=== PATIENT | female | born 1935 | race Caucasian/White ===

== ENCOUNTER 2017-11-03 08:18 | Inpatient (IN) ==
[2017-11-03 09:42] LABS: INR 3.1
[2017-11-03 09:43] LABS: PT Patient Result 31.4 SECS
[2017-11-03 09:53] LABS: Basophils % 0.2 % (0.0-0.8); Eosinophils % 0.1 % (0.00-10.9); Hematocrit 30.9 VOL% (35.7-47.0); Hemoglobin 10.2 GM/DL (12.0-16.0); Immature Granulocytes % 0.5 %; Immature Granulocytes Absolute 0.07 #; Lymphocytes # 0.8 10*3/uL (1.4-4.0); Lymphocytes % 5.7 % (21.3-54.2); Mean Corpuscular Hemoglobin 30 PG (27-34); Mean Corpuscular Volume 90.4 FL (87-102); Mean Platelet Volume 10.9 FL (9.6-12.0); Monocytes # 0.8 10*3/uL (0.11-0.8); Monocytes % 5.8 % (1.7-12.7); Neutrophils # 12.8 10*3/uL (1.4-7.4); Neutrophils % 87.7 % (38.7-73.9); Platelet Count 281 T/CUMM (130-400); Red Blood Count 3.42 MC/CUMM (3.8-5.5); Red Cell Distribution Width 14.3 % (9.3-17.3); White Blood Count 14.5 T/CUMM (4-12)
[2017-11-03 09:57] LABS: Alanine Aminotransferase 14 U/L (13-56); Albumin 3.3 G/DL (3.4-5.0); Alkaline Phosphatase 57 U/L (45-117); Aspartate Amino Transferase 7 U/L (0-37); Bilirubin,Total < 0.39 MG/DL (0.2-1.0); Calcium 8.2 MG/DL (8.5-10.1); Total Protein 6.1 G/DL (6.4-8.3)
[2017-11-03 09:58] LABS: Blood Urea Nitrogen 9 MG/DL (7-18); Glucose 120 MG/DL (74-106); Osmolality,Calculated 254.2 MOS/KG (273-304); Potassium 3.7 MMOL/L (3.5-5.1); Sodium 127 MMOL/L (136-145)
[2017-11-03] MEDS ORDERED: DOCUSATE SODIUM 100 MG CAPSULE PO PRN (10:09)
[2017-11-03] MEDS ORDERED: PHYTONADIONE 5 MG/5 ML ORAL.SYR PO ONE (10:13)
[2017-11-03] MEDS: ONDANSETRON 4 MG/2 ML VIAL IV PRN (10:26)
[2017-11-03] MEDS ORDERED: ONDANSETRON 4 MG/2 ML VIAL ONE (10:27)
[2017-11-03] MEDS: SODIUM CHLORIDE 0.9% 1,000 ML IV SCH (11:46)
[2017-11-03] MEDS: ASPIRIN EC 81 MG TABLET PO SCH (16:25)
[2017-11-03] MEDS: METOPROLOL TARTRATE 25 MG TABLET PO SCH ×2 (16:25→16:41)
[2017-11-03] MEDS ORDERED: SODIUM CHLORIDE 0.9% 1,000 ML IV PRN ×2 (16:53→19:56)
[2017-11-03] MEDS ORDERED: MORPHINE 2 MG/1 ML SYRINGE IV PRN (17:01)
[2017-11-03] MEDS: MORPHINE 2 MG/1 ML SYRINGE IV PRN ×2 (17:13→23:13)
[2017-11-03 17:24] LABS: Apearance,Urine CLOUDY (Clear); Bacteria,Urine Moderate /HPF (Few); Bilirubin,Urine Negative (Negative); Blood, Urine Large mg/dL (Negative); Glucose,Urine (UA) Negative (Negative); Ketones,Urine Negative (Negative); Mucus,Urine Occasional /LPF (Occasional); Nitrite,Urine Positive (Negative); Protein,Urine Negative; RBC,Urine 66 /HPF (0-4); Squamous Epithelial Cell,Urine Occasional /HPF (0-10); Urine Color Yellow (Yellow); Urine Specific Gravity 1.006 (1.001-1.035); Urine Urobilinogen < 2.0 EU/DL (0.2-1.0); WBC,Urine 213 /HPF (0-6)
[2017-11-03] MEDS: ZALEPLON 5 MG CAPSULE PO SCH (21:11)
[2017-11-03] MEDS: LORATADINE 10 MG TABLET PO SCH (21:11)
[2017-11-03] MEDS: hydrALAZINE 25 MG TABLET PO SCH (21:15)
[2017-11-04 05:32] LABS: Basophils % 0.3 % (0.0-0.8); Eosinophils % 0.6 % (0.00-10.9); Hematocrit 23.8 VOL% (35.7-47.0); Immature Granulocytes % 0.4 %; Immature Granulocytes Absolute 0.03 #; Lymphocytes % 13.5 % (21.3-54.2); Mean Corpuscular Hemoglobin 30 PG (27-34); Mean Corpuscular Volume 87.2 FL (87-102); Mean Platelet Volume 11.1 FL (9.6-12.0); Monocytes % 13.4 % (1.7-12.7); Neutrophils # 5.2 10*3/uL (1.4-7.4); Neutrophils % 71.8 % (38.7-73.9); Red Cell Distribution Width 14.4 % (9.3-17.3)
[2017-11-04 05:41] LABS: INR 1.2; PT Patient Result 12.4 SECS
[2017-11-04 06:07] LABS: Calcium 8.8 MG/DL (8.5-10.1); Osmolality,Calculated 255.9 MOS/KG (273-304); Potassium 3.8 MMOL/L (3.5-5.1)
[2017-11-04 06:10] LABS: Red Blood Count 2.73 MC/CUMM (3.8-5.5); White Blood Count 7.2 T/CUMM (4-12)
[2017-11-04 06:11] LABS: Hemoglobin 8.1 GM/DL (12.0-16.0); Platelet Count 216 T/CUMM (130-400)
[2017-11-04 06:47] LABS: Risk Ratio 2.3; VLDL CHOLESTEROL 18.2 MG/DL
[2017-11-04] MEDS ORDERED: SODIUM CHLORIDE 0.9% 1,000 ML IV PRN (07:40)
[2017-11-04] MEDS ORDERED: CLINDAMYCIN INJ 600 MG in PREMIX 1 EACH IV ONE (08:00)
[2017-11-04] MEDS: FUROSEMIDE 80 MG TABLET PO SCH ×2 (08:08→15:40)
[2017-11-04] MEDS: ASPIRIN EC 81 MG TABLET PO SCH (08:09)
[2017-11-04] MEDS: LORATADINE 10 MG TABLET PO SCH ×2 (08:09→20:49)
[2017-11-04] MEDS: MOMETASONE 50 MCG NASAL SPRAY 17 GM BOTTLE BOTH NARES SCH (08:09)
[2017-11-04] MEDS: PANTOPRAZOLE 40 MG TABLET PO SCH (08:09)
[2017-11-04] MEDS: ISOSORBIDE DINITRATE 20 MG TABLET PO SCH ×2 (08:09→08:17)
[2017-11-04] MEDS: POTASSIUM CHLORIDE 10 MEQ TABLET PO SCH (08:09)
[2017-11-04] MEDS: METOPROLOL TARTRATE 25 MG TABLET PO SCH (08:16)
[2017-11-04] MEDS: hydrALAZINE 25 MG TABLET PO SCH (08:17)
[2017-11-04] MEDS: MORPHINE 2 MG/1 ML SYRINGE IV PRN (08:17)
[2017-11-04] MEDS: SODIUM CHLORIDE 0.9% 1,000 ML IV SCH (09:40)
[2017-11-04] MEDS: ONDANSETRON 4 MG/2 ML VIAL IV PRN (10:13)
[2017-11-04] MEDS ORDERED: LACTULOSE 20 GM/30 ML UDCUP PO PRN (13:31)
[2017-11-04] MEDS ORDERED: PROMETHAZINE 25 MG/1 ML VIAL IM PRN (13:31)
[2017-11-04] MEDS ORDERED: MAGNESIUM HYDROXIDE SUSP 30 ML UDCUP PO PRN (13:31)
[2017-11-04] MEDS ORDERED: PROMETHAZINE 25 MG TABLET PO PRN (13:35)
[2017-11-04] MEDS ORDERED: fentaNYL 100 MCG/2 ML VIAL ONE (13:58)
[2017-11-04] MEDS ORDERED: MIDAZOLAM 2 MG/2 ML VIAL ONE (13:58)
[2017-11-04] MEDS ORDERED: DEXAMETHASONE 4 MG/1 ML VIAL ONE (13:58)
[2017-11-04] MEDS ORDERED: ONDANSETRON 4 MG/2 ML VIAL ONE ×2 (13:58→15:02)
[2017-11-04] MEDS ORDERED: FAMOTIDINE 20 MG/2 ML VIAL IV ONE (13:59)
[2017-11-04] MEDS ORDERED: METOPROLOL TARTRATE 5 MG/5 ML VIAL IV ONE (13:59)
[2017-11-04] MEDS ORDERED: ETOMIDATE 40 MG/20 ML VIAL IV ONE (14:00)
[2017-11-04] MEDS ORDERED: PROPOFOL 200 MG/20 ML VIAL IV ONE (14:00)
[2017-11-04] MEDS: LACTATED RINGERS 1,000 ML IV SCH ×2 (14:03)
[2017-11-04] MEDS: HYDROmorphone 2 MG/1 ML VIAL IV PRN ×2 (15:00→15:05)
[2017-11-04] MEDS ORDERED: HYDROmorphone 2 MG/1 ML VIAL ONE (15:02)
[2017-11-04] MEDS ORDERED: ONDANSETRON 4 MG/2 ML VIAL IV PRN (15:08)
[2017-11-04] MEDS: WARFARIN 5 MG TABLET PO SCH (17:15)
[2017-11-04] MEDS: CLINDAMYCIN INJ 900 MG in PREMIX 1 EACH IV SCH (20:47)
[2017-11-04] MEDS: MORPHINE ER 15 MG TABLET PO SCH (20:48)
[2017-11-04] MEDS: hydrALAZINE 10 MG TABLET PO SCH (20:48)
[2017-11-04] MEDS: ZALEPLON 5 MG CAPSULE PO SCH (20:49)
[2017-11-04] MEDS: ATORVASTATIN 20 MG TABLET PO SCH (20:49)
[2017-11-05] MEDS: CLINDAMYCIN INJ 900 MG in PREMIX 1 EACH IV SCH ×2 (04:57→12:33)
[2017-11-05 08:23] LABS: Calcium 8.2 MG/DL (8.5-10.1); Osmolality,Calculated 257.1 MOS/KG (273-304)
[2017-11-05 08:28] LABS: Basophils % 0.1 % (0.0-0.8); Hematocrit 25.2 VOL% (35.7-47.0); Hemoglobin 8.4 GM/DL (12.0-16.0); Immature Granulocytes % 0.8 %; Immature Granulocytes Absolute 0.13 #; Lymphocytes % 6.3 % (21.3-54.2); Mean Corpuscular HGB Conc 33.3 GM/DL (32-36); Mean Corpuscular Hemoglobin 29 PG (27-34); Mean Corpuscular Volume 87.2 FL (87-102); Mean Platelet Volume 10.9 FL (9.6-12.0); Monocytes % 12.8 % (1.7-12.7); Neutrophils # 12.5 10*3/uL (1.4-7.4); Platelet Count 173 T/CUMM (130-400); Red Blood Count 2.89 MC/CUMM (3.8-5.5); Red Cell Distribution Width 14.9 % (9.3-17.3); White Blood Count 15.6 T/CUMM (4-12)
[2017-11-05] MEDS ORDERED: NON-FORMULARY MEDICATION (Lansoprazole [Prevacid] 30 MG) PO SCH (09:00)
[2017-11-05] MEDS: FUROSEMIDE 80 MG TABLET PO SCH ×2 (09:05→16:33)
[2017-11-05] MEDS: MEROPENEM 1,000 MG in SYRINGE 1 EACH IV SCH ×2 (09:05→21:10)
[2017-11-05] MEDS: ASPIRIN 325 MG TABLET PO SCH (09:06)
[2017-11-05] MEDS: LORATADINE 10 MG TABLET PO SCH ×2 (09:06→21:05)
[2017-11-05] MEDS: ISOSORBIDE DINITRATE 20 MG TABLET PO SCH (09:07)
[2017-11-05] MEDS: POTASSIUM CHLORIDE 10 MEQ TABLET PO SCH (09:07)
[2017-11-05] MEDS: PANTOPRAZOLE 40 MG TABLET PO SCH (09:09)
[2017-11-05] MEDS: LISINOPRIL 5 MG TABLET PO SCH (09:09)
[2017-11-05] MEDS: METOPROLOL TARTRATE 25 MG TABLET PO SCH (09:09)
[2017-11-05] MEDS: hydrALAZINE 10 MG TABLET PO SCH ×2 (09:12→21:04)
[2017-11-05] MEDS: MORPHINE 2 MG/1 ML SYRINGE IV PRN (09:35)
[2017-11-05] MEDS: MOMETASONE 50 MCG NASAL SPRAY 17 GM BOTTLE BOTH NARES SCH (09:35)
[2017-11-05] MEDS ORDERED: SODIUM CHLORIDE 0.9% 1,000 ML IV PRN (10:11)
[2017-11-05] MEDS: LACTATED RINGERS 1,000 ML IV SCH ×2 (11:19→23:15)
[2017-11-05] MEDS: ONDANSETRON 4 MG/2 ML VIAL IV PRN (11:31)
[2017-11-05] MEDS: WARFARIN 5 MG TABLET PO SCH (18:29)
[2017-11-05] MEDS: ZALEPLON 5 MG CAPSULE PO SCH (21:05)
[2017-11-05] MEDS: ATORVASTATIN 20 MG TABLET PO SCH (21:05)
[2017-11-05] MEDS: MORPHINE ER 15 MG TABLET PO SCH (22:42)
[2017-11-06 03:11] LABS: Basophils % 0.3 % (0.0-0.8); Eosinophils # 0.1 10*3/uL (0.0-0.87); Hematocrit 33.7 VOL% (35.7-47.0); Hemoglobin 11.4 GM/DL (12.0-16.0); Immature Granulocytes % 0.6 %; Immature Granulocytes Absolute 0.07 #; Lymphocytes # 1.3 10*3/uL (1.4-4.0); Lymphocytes % 10.9 % (21.3-54.2); Mean Corpuscular HGB Conc 33.8 GM/DL (32-36); Mean Corpuscular Hemoglobin 29 PG (27-34); Monocytes # 1.9 10*3/uL (0.11-0.8); Monocytes % 16.4 % (1.7-12.7); Neutrophils # 8.3 10*3/uL (1.4-7.4); Neutrophils % 70.8 % (38.7-73.9); Platelet Count 158 T/CUMM (130-400); Red Blood Count 3.92 MC/CUMM (3.8-5.5); Red Cell Distribution Width 13.9 % (9.3-17.3); White Blood Count 11.7 T/CUMM (4-12)
[2017-11-06 03:30] LABS: PT Patient Result 10.8 SECS
[2017-11-06 03:38] LABS: Calcium 8.1 MG/DL (8.5-10.1); Osmolality,Calculated 255.1 MOS/KG (273-304); Potassium 3.8 MMOL/L (3.5-5.1)
[2017-11-06 05:24] LABS: Lymphocytes 7 % (20-55); Segmented Neutrophils 83 % (50-85); Total Cells Counted 100
[2017-11-06 05:26] LABS: Platelet Estimate Normal
[2017-11-06 05:27] LABS: Hypochromasia Slight
[2017-11-06] MEDS: LACTATED RINGERS 1,000 ML IV SCH ×3 (06:36→22:01)
[2017-11-06] MEDS: FUROSEMIDE 80 MG TABLET PO SCH ×2 (09:17→17:24)
[2017-11-06] MEDS: MEROPENEM 1,000 MG in SYRINGE 1 EACH IV SCH ×2 (09:17→20:24)
[2017-11-06] MEDS: LORATADINE 10 MG TABLET PO SCH ×2 (09:18→20:22)
[2017-11-06] MEDS: ASPIRIN 325 MG TABLET PO SCH (09:18)
[2017-11-06] MEDS: POTASSIUM CHLORIDE 10 MEQ TABLET PO SCH (09:24)
[2017-11-06] MEDS: METOPROLOL TARTRATE 25 MG TABLET PO SCH (09:24)
[2017-11-06] MEDS: ISOSORBIDE DINITRATE 20 MG TABLET PO SCH (09:24)
[2017-11-06] MEDS: LISINOPRIL 5 MG TABLET PO SCH (09:26)
[2017-11-06] MEDS: PANTOPRAZOLE 40 MG TABLET PO SCH (09:26)
[2017-11-06] MEDS: hydrALAZINE 10 MG TABLET PO SCH (09:27)
[2017-11-06] MEDS: MOMETASONE 50 MCG NASAL SPRAY 17 GM BOTTLE BOTH NARES SCH ×2 (10:46→10:48)
[2017-11-06] MEDS: WARFARIN 5 MG TABLET PO SCH (18:56)
[2017-11-06] MEDS: ZALEPLON 5 MG CAPSULE PO SCH (20:22)
[2017-11-06] MEDS: ATORVASTATIN 20 MG TABLET PO SCH (20:22)
[2017-11-06] MEDS: MORPHINE ER 15 MG TABLET PO SCH (20:23)
[2017-11-07 03:46] LABS: Basophils % 0.2 % (0.0-0.8); Eosinophils # 0.2 10*3/uL (0.0-0.87); Eosinophils % 1.4 % (0.00-10.9); Hematocrit 33.4 VOL% (35.7-47.0); Hemoglobin 11.5 GM/DL (12.0-16.0); Immature Granulocytes % 0.6 %; Immature Granulocytes Absolute 0.07 #; Lymphocytes # 1.4 10*3/uL (1.4-4.0); Lymphocytes % 11.3 % (21.3-54.2); Mean Corpuscular HGB Conc 34.4 GM/DL (32-36); Mean Corpuscular Hemoglobin 29 PG (27-34); Mean Corpuscular Volume 83.9 FL (87-102); Mean Platelet Volume 10.8 FL (9.6-12.0); Monocytes # 1.8 10*3/uL (0.11-0.8); Monocytes % 14.6 % (1.7-12.7); Neutrophils # 8.6 10*3/uL (1.4-7.4); Neutrophils % 71.9 % (38.7-73.9); Platelet Count 181 T/CUMM (130-400); Red Blood Count 3.98 MC/CUMM (3.8-5.5); Red Cell Distribution Width 14.5 % (9.3-17.3)
[2017-11-07] MEDS: LACTATED RINGERS 1,000 ML IV SCH ×3 (03:47→23:41)
[2017-11-07] MEDS: ONDANSETRON 4 MG/2 ML VIAL IV PRN (06:34)
[2017-11-07] MEDS: MORPHINE 2 MG/1 ML SYRINGE IV PRN (06:36)
[2017-11-07] MEDS ORDERED: MAGNESIUM SULF RIDER 4 GM in PREMIX 1 EACH IV ONE (08:28)
[2017-11-07] MEDS: FUROSEMIDE 80 MG TABLET PO SCH ×2 (09:42→16:36)
[2017-11-07] MEDS: LORATADINE 10 MG TABLET PO SCH ×2 (09:43→20:34)
[2017-11-07] MEDS: ISOSORBIDE DINITRATE 20 MG TABLET PO SCH (09:43)
[2017-11-07] MEDS: ASPIRIN 325 MG TABLET PO SCH (09:43)
[2017-11-07] MEDS: MEROPENEM 1,000 MG in SYRINGE 1 EACH IV SCH ×2 (09:43→20:35)
[2017-11-07] MEDS: POTASSIUM CHLORIDE 10 MEQ TABLET PO SCH (09:44)
[2017-11-07] MEDS: METOPROLOL TARTRATE 25 MG TABLET PO SCH (09:44)
[2017-11-07] MEDS: PANTOPRAZOLE 40 MG TABLET PO SCH (09:45)
[2017-11-07] MEDS: MOMETASONE 50 MCG NASAL SPRAY 17 GM BOTTLE BOTH NARES SCH (10:36)
[2017-11-07] MEDS: MORPHINE ER 15 MG TABLET PO SCH ×2 (11:02→20:34)
[2017-11-07] MEDS ORDERED: KETOROLAC 30 MG/1 ML VIAL IV PRN (11:27)
[2017-11-07] MEDS: oxyCODONE/ACETAMINOPHEN 5-325 MG TABLET PO PRN (16:35)
[2017-11-07] MEDS: WARFARIN 5 MG TABLET PO SCH (17:51)
[2017-11-07] MEDS: ATORVASTATIN 20 MG TABLET PO SCH (20:33)
[2017-11-07] MEDS: ZALEPLON 5 MG CAPSULE PO SCH (20:34)
[2017-11-08] MEDS: LACTATED RINGERS 1,000 ML IV SCH ×2 (03:43→10:48)
[2017-11-08 06:51] LABS: Basophils # 0.1 10*3/uL (0.0-0.2); Basophils % 0.5 % (0.0-0.8); Eosinophils # 0.3 10*3/uL (0.0-0.87); Eosinophils % 3.1 % (0.00-10.9); Hematocrit 34.3 VOL% (35.7-47.0); Hemoglobin 11.5 GM/DL (12.0-16.0); Immature Granulocytes % 0.7 %; Immature Granulocytes Absolute 0.08 #; Lymphocytes # 1.1 10*3/uL (1.4-4.0); Lymphocytes % 10.3 % (21.3-54.2); Mean Corpuscular HGB Conc 33.5 GM/DL (32-36); Mean Corpuscular Hemoglobin 29 PG (27-34); Mean Corpuscular Volume 87.5 FL (87-102); Mean Platelet Volume 10.5 FL (9.6-12.0); Monocytes # 1.4 10*3/uL (0.11-0.8); Monocytes % 12.7 % (1.7-12.7); Neutrophils # 7.8 10*3/uL (1.4-7.4); Neutrophils % 72.7 % (38.7-73.9); Platelet Count 235 T/CUMM (130-400); Red Blood Count 3.92 MC/CUMM (3.8-5.5); Red Cell Distribution Width 14.4 % (9.3-17.3); White Blood Count 10.7 T/CUMM (4-12)
[2017-11-08 07:24] LABS: Calcium 8.4 MG/DL (8.5-10.1); Osmolality,Calculated 261.7 MOS/KG (273-304); Potassium 3.7 MMOL/L (3.5-5.1)
[2017-11-08] MEDS: ASPIRIN 325 MG TABLET PO SCH (09:59)
[2017-11-08] MEDS: LORATADINE 10 MG TABLET PO SCH ×2 (09:59→21:06)
[2017-11-08] MEDS: POTASSIUM CHLORIDE 10 MEQ TABLET PO SCH (09:59)
[2017-11-08] MEDS: FUROSEMIDE 80 MG TABLET PO SCH (09:59)
[2017-11-08] MEDS: PANTOPRAZOLE 40 MG TABLET PO SCH (09:59)
[2017-11-08] MEDS: ISOSORBIDE DINITRATE 20 MG TABLET PO SCH (09:59)
[2017-11-08] MEDS: MOMETASONE 50 MCG NASAL SPRAY 17 GM BOTTLE BOTH NARES SCH (09:59)
[2017-11-08] MEDS: MORPHINE ER 15 MG TABLET PO SCH ×2 (09:59→21:06)
[2017-11-08] MEDS: MEROPENEM 1,000 MG in SYRINGE 1 EACH IV SCH (09:59)
[2017-11-08] MEDS: METOPROLOL TARTRATE 25 MG TABLET PO SCH (09:59)
[2017-11-08] MEDS: oxyCODONE/ACETAMINOPHEN 5-325 MG TABLET PO PRN ×2 (12:43→18:30)
[2017-11-08] MEDS: ONDANSETRON 4 MG/2 ML VIAL IV PRN (14:09)
[2017-11-08] MEDS ORDERED: ASPIRIN CHEW 81 MG TABLET PO SCH (14:18)
[2017-11-08] MEDS ORDERED: ENOXAPARIN 40 MG/0.4 ML SYRINGE SUBCUT SCH (14:30)
[2017-11-08] MEDS: FUROSEMIDE 40 MG/4 ML VIAL IV SCH ×2 (15:55→16:25)
[2017-11-08] MEDS ORDERED: FUROSEMIDE 40 MG/4 ML VIAL IV SCH (16:00)
[2017-11-08] MEDS: WARFARIN 5 MG TABLET PO SCH (17:57)
[2017-11-08] MEDS: ZALEPLON 5 MG CAPSULE PO SCH (21:05)
[2017-11-08] MEDS: ATORVASTATIN 20 MG TABLET PO SCH (21:06)
[2017-11-09 06:42] LABS: Calcium 8.4 MG/DL (8.5-10.1); Osmolality,Calculated 260.8 MOS/KG (273-304); Potassium 4.1 MMOL/L (3.5-5.1)
[2017-11-09] MEDS: LORATADINE 10 MG TABLET PO SCH (08:27)
[2017-11-09] MEDS: METOPROLOL TARTRATE 25 MG TABLET PO SCH (08:27)
[2017-11-09] MEDS: MOMETASONE 50 MCG NASAL SPRAY 17 GM BOTTLE BOTH NARES SCH (08:27)
[2017-11-09] MEDS: PANTOPRAZOLE 40 MG TABLET PO SCH (08:27)
[2017-11-09] MEDS: ONDANSETRON 4 MG/2 ML VIAL IV PRN (08:27)
[2017-11-09] MEDS: ISOSORBIDE DINITRATE 20 MG TABLET PO SCH (08:27)
[2017-11-09] MEDS: POTASSIUM CHLORIDE 10 MEQ TABLET PO SCH (08:27)
[2017-11-09] MEDS: FUROSEMIDE 40 MG/4 ML VIAL IV SCH (08:27)
[2017-11-09 11:21] LABS: INR 2.2
[2017-11-09 11:25] VITALS: BP 114/60
[2017-11-09 11:27] LABS: PT Patient Result 22.5 SECS
[2017-11-09] MEDS: MORPHINE ER 15 MG TABLET PO SCH (12:06)
== END 2017-11-09 11:55 | disposition swing bed (61) | DRG 481 ==
LOC: EDUNIT# → EDBD → N.ED 08:18 → N.EDINP 09:33 → SUATTDRO 09:33 → N.3E 16:05
PROVIDERS: ADMIT Internal Medicine; ATTEND Internal Medicine

== ENCOUNTER 2017-11-10 15:53 | Inpatient (IN) ==
[2017-11-10] MEDS ORDERED: SODIUM CHLORIDE 0.9% 1,000 ML IV SCH (19:00)
[2017-11-10] MEDS ORDERED: SODIUM CHLORIDE 0.45% 1,000 ML IV SCH (19:00)
[2017-11-10] MEDS ORDERED: LABETALOL 20 MG/4 ML SYRINGE IV PRN (19:11)
[2017-11-10 19:26] LABS: Basophils % 0.2 % (0.0-0.8); Eosinophils % 0.4 % (0.00-10.9); Hematocrit 34.1 VOL% (35.7-47.0); Hemoglobin 11.2 GM/DL (12.0-16.0); Immature Granulocytes % 0.7 %; Immature Granulocytes Absolute 0.08 #; Lymphocytes # 0.6 10*3/uL (1.4-4.0); Lymphocytes % 5.4 % (21.3-54.2); Mean Corpuscular HGB Conc 32.8 GM/DL (32-36); Mean Corpuscular Hemoglobin 29 PG (27-34); Mean Corpuscular Volume 88.8 FL (87-102); Mean Platelet Volume 9.8 FL (9.6-12.0); Monocytes # 1.4 10*3/uL (0.11-0.8); Monocytes % 12.5 % (1.7-12.7); Neutrophils # 8.9 10*3/uL (1.4-7.4); Neutrophils % 80.8 % (38.7-73.9); Platelet Count 289 T/CUMM (130-400); Red Blood Count 3.84 MC/CUMM (3.8-5.5); Red Cell Distribution Width 14.5 % (9.3-17.3)
[2017-11-10] MEDS: HYDROmorphone 2 MG/1 ML VIAL IV PRN ×2 (19:43→23:55)
[2017-11-10 19:46] LABS: Albumin 2.9 G/DL (3.4-5.0); Bilirubin,Total 1.1 MG/DL (0.2-1.0); Calcium 8.6 MG/DL (8.5-10.1); Magnesium 1.9 MG/DL (1.8-2.4); Osmolality,Calculated 262.7 MOS/KG (273-304); Potassium 4.2 MMOL/L (3.5-5.1); Total Protein 5.5 G/DL (6.4-8.3)
[2017-11-10] MEDS: ONDANSETRON 4 MG/2 ML VIAL IV PRN ×2 (19:55→23:55)
[2017-11-10 20:05] LABS: INR 3.4
[2017-11-10] MEDS: FAMOTIDINE 20 MG/2 ML VIAL IV SCH (20:21)
[2017-11-11] MEDS: METOCLOPRAMIDE 10 MG/2 ML VIAL IV SCH ×4 (01:55→17:19)
[2017-11-11] MEDS: HYDROmorphone 2 MG/1 ML VIAL IV PRN ×3 (04:44→19:49)
[2017-11-11] MEDS: ONDANSETRON 4 MG/2 ML VIAL IV PRN ×2 (04:44→19:49)
[2017-11-11 05:07] LABS: Basophils % 0.3 % (0.0-0.8); Eosinophils # 0.1 10*3/uL (0.0-0.87); Eosinophils % 1.2 % (0.00-10.9); Hematocrit 31.1 VOL% (35.7-47.0); Hemoglobin 10.3 GM/DL (12.0-16.0); Immature Granulocytes % 0.8 %; Immature Granulocytes Absolute 0.07 #; Lymphocytes # 0.6 10*3/uL (1.4-4.0); Lymphocytes % 6.6 % (21.3-54.2); Mean Corpuscular HGB Conc 33.1 GM/DL (32-36); Mean Corpuscular Hemoglobin 29 PG (27-34); Mean Corpuscular Volume 88.1 FL (87-102); Mean Platelet Volume 10.2 FL (9.6-12.0); Monocytes # 1.4 10*3/uL (0.11-0.8); Monocytes % 14.8 % (1.7-12.7); Neutrophils # 7.1 10*3/uL (1.4-7.4); Neutrophils % 76.3 % (38.7-73.9); Platelet Count 253 T/CUMM (130-400); Red Blood Count 3.53 MC/CUMM (3.8-5.5); Red Cell Distribution Width 14.6 % (9.3-17.3); White Blood Count 9.3 T/CUMM (4-12)
[2017-11-11 05:31] LABS: INR 3.1
[2017-11-11 05:33] LABS: PT Patient Result 31.3 SECS
[2017-11-11 05:45] LABS: Calcium 8.3 MG/DL (8.5-10.1); Osmolality,Calculated 260.7 MOS/KG (273-304); Potassium 3.7 MMOL/L (3.5-5.1)
[2017-11-11] MEDS: FAMOTIDINE 20 MG/2 ML VIAL IV SCH ×2 (06:43→18:29)
[2017-11-11] MEDS ORDERED: ENOXAPARIN 40 MG/0.4 ML SYRINGE SUBCUT SCH (09:00)
[2017-11-11] MEDS: FUROSEMIDE 40 MG/4 ML VIAL IV SCH ×2 (09:37→17:19)
[2017-11-11] MEDS ORDERED: DEXTROSE 50% 25 GM/50 ML VIAL IV PRN (09:42)
[2017-11-11] MEDS ORDERED: GLUCAGON 1 MG VIAL IM PRN (09:42)
[2017-11-11] MEDS ORDERED: INSULIN REGULAR 100 UNIT/ML SUBCUT SCH (12:00)
[2017-11-11] MEDS ORDERED: FAT EMULSION 20% 250 ML IV SCH (14:00)
[2017-11-11] MEDS ORDERED: DEXTROSE 10% 1,000 ML IV PRN (17:00)
[2017-11-11] MEDS ORDERED: MULTIVITAMIN INJ 10 ML, TRACE ELEMENTS (5) 1 ML in AMINO ACIDS/DEXT/LYTES 5-15% 2,000 ML IV SCH (17:00)
[2017-11-11] MEDS ORDERED: WARFARIN 5 MG TABLET PO SCH (18:00)
[2017-11-11] MEDS ORDERED: MORPHINE ER 15 MG TABLET PO SCH (21:00)
[2017-11-11] MEDS: ZALEPLON 5 MG CAPSULE PO SCH (21:57)
[2017-11-11] MEDS: ATORVASTATIN 20 MG TABLET PO SCH (21:57)
[2017-11-11] MEDS: MORPHINE ER 15 MG TABLET PO SCH (21:57)
[2017-11-11] MEDS: WARFARIN 4 MG TABLET PO SCH (21:58)
[2017-11-12 05:19] LABS: Basophils % 0.2 % (0.0-0.8); Eosinophils % 0.1 % (0.00-10.9); Hematocrit 30.2 VOL% (35.7-47.0); Hemoglobin 10.1 GM/DL (12.0-16.0); Immature Granulocytes % 0.8 %; Immature Granulocytes Absolute 0.07 #; Lymphocytes # 0.7 10*3/uL (1.4-4.0); Lymphocytes % 7.9 % (21.3-54.2); Mean Corpuscular HGB Conc 33.4 GM/DL (32-36); Mean Corpuscular Hemoglobin 29 PG (27-34); Mean Corpuscular Volume 86.3 FL (87-102); Mean Platelet Volume 10.1 FL (9.6-12.0); Monocytes # 1.2 10*3/uL (0.11-0.8); Monocytes % 13.1 % (1.7-12.7); Neutrophils # 7.2 10*3/uL (1.4-7.4); Neutrophils % 77.9 % (38.7-73.9); Platelet Count 253 T/CUMM (130-400); Red Cell Distribution Width 14.6 % (9.3-17.3); White Blood Count 9.2 T/CUMM (4-12)
[2017-11-12 05:51] LABS: Calcium 8.3 MG/DL (8.5-10.1); Osmolality,Calculated 252.2 MOS/KG (273-304); Potassium 3.2 MMOL/L (3.5-5.1)
[2017-11-12 06:07] LABS: Prealbumin 11.2 MG/DL (20-40)
[2017-11-12] MEDS: FAMOTIDINE 20 MG/2 ML VIAL IV SCH ×2 (06:16→18:04)
[2017-11-12] MEDS: METOCLOPRAMIDE 10 MG/2 ML VIAL IV SCH ×4 (06:25→18:04)
[2017-11-12] MEDS: ASPIRIN CHEW 81 MG TABLET PO SCH (09:01)
[2017-11-12] MEDS: ONDANSETRON 4 MG/2 ML VIAL IV PRN ×2 (09:01→21:16)
[2017-11-12] MEDS: FUROSEMIDE 40 MG/4 ML VIAL IV SCH (09:01)
[2017-11-12] MEDS: MORPHINE ER 15 MG TABLET PO SCH ×2 (10:24→21:09)
[2017-11-12] MEDS: HYDROmorphone 2 MG/1 ML VIAL IV PRN (12:10)
[2017-11-12] MEDS ORDERED: POTASSIUM CHLORIDE 20 MEQ TABLET PO ONE (15:47)
[2017-11-12] MEDS: TOLVAPTAN 15 MG TABLET PO SCH (16:32)
[2017-11-12] MEDS: METOPROLOL TARTRATE 25 MG TABLET PO SCH ×2 (16:32→21:08)
[2017-11-12] MEDS ORDERED: MAGNESIUM CITRATE 300 ML BOTTLE PO ONE (17:06)
[2017-11-12] MEDS: WARFARIN 4 MG TABLET PO SCH (21:08)
[2017-11-12] MEDS: ZALEPLON 5 MG CAPSULE PO SCH (21:10)
[2017-11-12] MEDS: ATORVASTATIN 20 MG TABLET PO SCH (21:10)
[2017-11-13] MEDS: METOCLOPRAMIDE 10 MG/2 ML VIAL IV SCH ×4 (00:23→17:26)
[2017-11-13] MEDS: HYDROmorphone 2 MG/1 ML VIAL IV PRN ×2 (05:40→17:38)
[2017-11-13] MEDS: FAMOTIDINE 20 MG/2 ML VIAL IV SCH ×2 (06:15→18:00)
[2017-11-13 06:24] LABS: Basophils % 0.1 % (0.0-0.8); Hematocrit 34.6 VOL% (35.7-47.0); Hemoglobin 11.5 GM/DL (12.0-16.0); Immature Granulocytes % 0.7 %; Immature Granulocytes Absolute 0.07 #; Lymphocytes # 0.8 10*3/uL (1.4-4.0); Lymphocytes % 7.5 % (21.3-54.2); Mean Corpuscular HGB Conc 33.2 GM/DL (32-36); Mean Corpuscular Hemoglobin 30 PG (27-34); Mean Corpuscular Volume 88.7 FL (87-102); Mean Platelet Volume 10.5 FL (9.6-12.0); Monocytes # 1.1 10*3/uL (0.11-0.8); Monocytes % 10.5 % (1.7-12.7); Neutrophils # 8.4 10*3/uL (1.4-7.4); Neutrophils % 81.2 % (38.7-73.9); Platelet Count 288 T/CUMM (130-400); Red Cell Distribution Width 14.7 % (9.3-17.3); White Blood Count 10.4 T/CUMM (4-12)
[2017-11-13 06:27] LABS: INR 4.1
[2017-11-13 06:32] LABS: PT Patient Result 40.9 SECS
[2017-11-13 06:51] LABS: Calcium 8.5 MG/DL (8.5-10.1); Osmolality,Calculated 257.1 MOS/KG (273-304); Potassium 4.2 MMOL/L (3.5-5.1)
[2017-11-13 06:57] LABS: Calcium 8.5 MG/DL (8.5-10.1); Osmolality,Calculated 258.1 MOS/KG (273-304); Potassium 4.2 MMOL/L (3.5-5.1)
[2017-11-13] MEDS ORDERED: FUROSEMIDE 40 MG/4 ML VIAL IV SCH (09:00)
[2017-11-13] MEDS: ASPIRIN CHEW 81 MG TABLET PO SCH (09:49)
[2017-11-13] MEDS: FUROSEMIDE 40 MG/4 ML VIAL IV SCH ×2 (09:49→22:03)
[2017-11-13] MEDS: MORPHINE ER 15 MG TABLET PO SCH ×2 (09:49→22:02)
[2017-11-13] MEDS: CARVEDILOL 12.5 MG TABLET PO SCH ×2 (09:49→17:26)
[2017-11-13] MEDS ORDERED: BISACODYL 10 MG SUPP RECTAL ONE (11:30)
[2017-11-13] MEDS: TOLVAPTAN 15 MG TABLET PO SCH (11:43)
[2017-11-13] MEDS: ZALEPLON 5 MG CAPSULE PO SCH (22:02)
[2017-11-13] MEDS: ATORVASTATIN 20 MG TABLET PO SCH (22:03)
[2017-11-14] MEDS: METOCLOPRAMIDE 10 MG/2 ML VIAL IV SCH ×4 (00:18→18:15)
[2017-11-14 04:55] LABS: Basophils % 0.1 % (0.0-0.8); Eosinophils % 0.3 % (0.00-10.9); Hematocrit 36.5 VOL% (35.7-47.0); Immature Granulocytes % 0.6 %; Lymphocytes % 6.4 % (21.3-54.2); Mean Corpuscular HGB Conc 32.9 GM/DL (32-36); Mean Corpuscular Hemoglobin 30 PG (27-34); Mean Corpuscular Volume 89.9 FL (87-102); Mean Platelet Volume 10.5 FL (9.6-12.0); Monocytes # 0.9 10*3/uL (0.11-0.8); Monocytes % 5.5 % (1.7-12.7); Neutrophils # 13.9 10*3/uL (1.4-7.4); Neutrophils % 87.1 % (38.7-73.9); Platelet Count 284 T/CUMM (130-400); Red Blood Count 4.06 MC/CUMM (3.8-5.5); Red Cell Distribution Width 14.8 % (9.3-17.3)
[2017-11-14 05:17] LABS: INR 5.3; PT Patient Result 52.6 SECS
[2017-11-14 05:18] LABS: INR 5.3
[2017-11-14 05:40] LABS: Calcium 8.4 MG/DL (8.5-10.1); Magnesium 2.4 MG/DL (1.8-2.4); Osmolality,Calculated 264.9 MOS/KG (273-304)
[2017-11-14] MEDS: FAMOTIDINE 20 MG/2 ML VIAL IV SCH ×2 (06:03→21:36)
[2017-11-14] MEDS: TOLVAPTAN 15 MG TABLET PO SCH (10:03)
[2017-11-14] MEDS: CARVEDILOL 12.5 MG TABLET PO SCH ×2 (10:09→18:03)
[2017-11-14] MEDS: MORPHINE ER 15 MG TABLET PO SCH (10:10)
[2017-11-14] MEDS: ASPIRIN CHEW 81 MG TABLET PO SCH (10:10)
[2017-11-14] MEDS: FUROSEMIDE 40 MG/4 ML VIAL IV SCH (10:11)
[2017-11-14] MEDS ORDERED: FUROSEMIDE 40 MG/4 ML VIAL IV SCH (11:56)
[2017-11-14] MEDS ORDERED: metroNIDAZOLE INJ 500 MG in PREMIX 1 EACH IV SCH (12:00)
[2017-11-14] MEDS ORDERED: CIPROFLOXACIN INJ 200 MG in PREMIX 1 EACH IV SCH ×2 (12:00→13:30)
[2017-11-14] MEDS ORDERED: PHYTONADIONE 5 MG/5 ML ORAL.SYR PO ONE (12:30)
[2017-11-14] MEDS ORDERED: LEVOFLOXACIN INJ 500 MG in PREMIX 1 EACH IV SCH (12:30)
[2017-11-14] MEDS: CLINDAMYCIN INJ 600 MG in PREMIX 1 EACH IV SCH ×2 (13:59→21:35)
[2017-11-14 16:50] LABS: Apearance,Urine Slightly Hazy (Clear); Bacteria,Urine Occasional /HPF (Few); Bilirubin,Urine Negative (Negative); Blood, Urine Small mg/dL (Negative); Glucose,Urine (UA) Negative (Negative); Ketones,Urine Negative (Negative); Nitrite,Urine Negative (Negative); Protein,Urine Negative; RBC,Urine 1 /HPF (0-4); Squamous Epithelial Cell,Urine Occasional /HPF (0-10); Urine Color Yellow (Yellow); Urine Specific Gravity 1.004 (1.001-1.035); Urine Urobilinogen < 2.0 EU/DL (0.2-1.0); WBC,Urine 2 /HPF (0-6)
[2017-11-14] MEDS: ATORVASTATIN 20 MG TABLET PO SCH (21:31)
[2017-11-14] MEDS: ZALEPLON 5 MG CAPSULE PO SCH (21:34)
[2017-11-15] MEDS: METOCLOPRAMIDE 10 MG/2 ML VIAL IV SCH ×3 (01:17→15:16)
[2017-11-15] MEDS: MORPHINE ER 15 MG TABLET PO SCH ×3 (01:18→20:38)
[2017-11-15] MEDS: CLINDAMYCIN INJ 600 MG in PREMIX 1 EACH IV SCH ×3 (04:28→20:39)
[2017-11-15 05:27] LABS: Basophils % 0.1 % (0.0-0.8); Hematocrit 33.2 VOL% (35.7-47.0); Hemoglobin 10.9 GM/DL (12.0-16.0); Immature Granulocytes % 0.8 %; Immature Granulocytes Absolute 0.16 #; Lymphocytes # 0.8 10*3/uL (1.4-4.0); Mean Corpuscular HGB Conc 32.8 GM/DL (32-36); Mean Corpuscular Hemoglobin 29 PG (27-34); Mean Corpuscular Volume 87.4 FL (87-102); Mean Platelet Volume 10.8 FL (9.6-12.0); Monocytes # 0.8 10*3/uL (0.11-0.8); Monocytes % 3.8 % (1.7-12.7); Neutrophils # 19.4 10*3/uL (1.4-7.4); Neutrophils % 91.3 % (38.7-73.9); Platelet Count 221 T/CUMM (130-400); Red Cell Distribution Width 14.7 % (9.3-17.3); White Blood Count 21.2 T/CUMM (4-12)
[2017-11-15 05:35] LABS: INR 3.7
[2017-11-15 05:59] LABS: Band Neutrophils 5 % (0-10); Lymphocytes 1 % (20-55); Segmented Neutrophils 90 % (50-85); Total Cells Counted 100
[2017-11-15 06:00] LABS: Hypochromasia 1+; Microcytosis 1+; Ovalocytes Slight; Platelet Estimate Normal
[2017-11-15 06:03] LABS: Calcium 7.9 MG/DL (8.5-10.1); Osmolality,Calculated 253.5 MOS/KG (273-304); Potassium 4.2 MMOL/L (3.5-5.1); Prealbumin 8.8 MG/DL (20-40)
[2017-11-15 06:04] LABS: Calcium 7.8 MG/DL (8.5-10.1); Magnesium 2.3 MG/DL (1.8-2.4); Osmolality,Calculated 251.6 MOS/KG (273-304); Potassium 4.2 MMOL/L (3.5-5.1)
[2017-11-15 06:05] LABS: PT Patient Result 36.8 SECS; Partial Thromboplastin Time 67.8 SECS (0-40)
[2017-11-15] MEDS ORDERED: FUROSEMIDE 40 MG/4 ML VIAL IV SCH (09:00)
[2017-11-15] MEDS: ONDANSETRON 4 MG/2 ML VIAL IV PRN ×2 (10:12→16:02)
[2017-11-15] MEDS: FAMOTIDINE 20 MG/2 ML VIAL IV SCH ×2 (10:51→19:35)
[2017-11-15] MEDS: ASPIRIN CHEW 81 MG TABLET PO SCH (10:52)
[2017-11-15] MEDS: ISOSORBIDE DINITRATE 20 MG TABLET PO SCH ×2 (10:52→20:38)
[2017-11-15] MEDS: FUROSEMIDE 40 MG/4 ML VIAL IV SCH ×2 (10:55→16:14)
[2017-11-15] MEDS: TOLVAPTAN 15 MG TABLET PO SCH (13:14)
[2017-11-15] MEDS ORDERED: LEVOFLOXACIN INJ 250 MG in PREMIX 1 EACH IV SCH (14:30)
[2017-11-15] MEDS: MORPHINE 2 MG/1 ML SYRINGE IV PRN (16:07)
[2017-11-15] MEDS: METOCLOPRAMIDE 5 MG TABLET PO SCH (17:24)
[2017-11-15] MEDS: METOPROLOL SUCCINATE XL 25 MG TABLET PO SCH (17:25)
[2017-11-15] MEDS: CARVEDILOL 12.5 MG TABLET PO SCH (17:29)
[2017-11-15] MEDS: ZALEPLON 5 MG CAPSULE PO SCH (20:38)
[2017-11-16] MEDS: METOCLOPRAMIDE 5 MG TABLET PO SCH ×5 (00:45→23:57)
[2017-11-16] MEDS: CLINDAMYCIN INJ 600 MG in PREMIX 1 EACH IV SCH ×3 (06:00→21:30)
[2017-11-16] MEDS: FAMOTIDINE 20 MG/2 ML VIAL IV SCH ×2 (06:01→19:05)
[2017-11-16 06:21] LABS: Eosinophils % 0.1 % (0.00-10.9); Hemoglobin 9.6 GM/DL (12.0-16.0); Immature Granulocytes % 0.8 %; Immature Granulocytes Absolute 0.09 #; Lymphocytes # 0.6 10*3/uL (1.4-4.0); Lymphocytes % 5.1 % (21.3-54.2); Mean Corpuscular HGB Conc 33.1 GM/DL (32-36); Mean Corpuscular Hemoglobin 29 PG (27-34); Mean Corpuscular Volume 88.1 FL (87-102); Mean Platelet Volume 11.2 FL (9.6-12.0); Monocytes # 0.6 10*3/uL (0.11-0.8); Monocytes % 5.3 % (1.7-12.7); Neutrophils # 10.4 10*3/uL (1.4-7.4); Neutrophils % 88.7 % (38.7-73.9); Platelet Count 180 T/CUMM (130-400); Red Blood Count 3.29 MC/CUMM (3.8-5.5); Red Cell Distribution Width 14.7 % (9.3-17.3); White Blood Count 11.7 T/CUMM (4-12)
[2017-11-16 06:24] LABS: INR 3.4
[2017-11-16 06:38] LABS: PT Patient Result 34.5 SECS
[2017-11-16 06:51] LABS: Calcium 7.6 MG/DL (8.5-10.1); Magnesium 2.2 MG/DL (1.8-2.4); Osmolality,Calculated 260.1 MOS/KG (273-304); Potassium 3.9 MMOL/L (3.5-5.1)
[2017-11-16] MEDS: FUROSEMIDE 40 MG/4 ML VIAL IV SCH ×2 (11:01→17:08)
[2017-11-16] MEDS: ISOSORBIDE DINITRATE 20 MG TABLET PO SCH ×2 (11:01→21:30)
[2017-11-16] MEDS: TOLVAPTAN 15 MG TABLET PO SCH (11:02)
[2017-11-16] MEDS: ASPIRIN CHEW 81 MG TABLET PO SCH (11:02)
[2017-11-16] MEDS: METOPROLOL SUCCINATE XL 25 MG TABLET PO SCH (11:03)
[2017-11-16] MEDS: MORPHINE ER 15 MG TABLET PO SCH ×2 (12:18→22:03)
[2017-11-16] MEDS: LEVOFLOXACIN INJ 500 MG in PREMIX 1 EACH IV SCH (17:52)
[2017-11-16] MEDS: ZALEPLON 5 MG CAPSULE PO SCH (21:31)
[2017-11-17] MEDS: CLINDAMYCIN INJ 600 MG in PREMIX 1 EACH IV SCH ×3 (05:16→21:16)
[2017-11-17] MEDS: METOCLOPRAMIDE 5 MG TABLET PO SCH ×3 (06:10→17:26)
[2017-11-17] MEDS: FAMOTIDINE 20 MG/2 ML VIAL IV SCH ×2 (06:10→19:26)
[2017-11-17 06:16] LABS: Basophils % 0.2 % (0.0-0.8); Eosinophils # 0.1 10*3/uL (0.0-0.87); Eosinophils % 1.1 % (0.00-10.9); Hematocrit 30.6 VOL% (35.7-47.0); Hemoglobin 10.3 GM/DL (12.0-16.0); Immature Granulocytes Absolute 0.06 #; Lymphocytes # 0.7 10*3/uL (1.4-4.0); Lymphocytes % 11.5 % (21.3-54.2); Mean Corpuscular HGB Conc 33.7 GM/DL (32-36); Mean Corpuscular Hemoglobin 30 PG (27-34); Mean Corpuscular Volume 88.4 FL (87-102); Mean Platelet Volume 11.7 FL (9.6-12.0); Monocytes # 0.6 10*3/uL (0.11-0.8); Monocytes % 9.6 % (1.7-12.7); Neutrophils # 4.7 10*3/uL (1.4-7.4); Neutrophils % 76.6 % (38.7-73.9); Platelet Count 190 T/CUMM (130-400); Red Blood Count 3.46 MC/CUMM (3.8-5.5); Red Cell Distribution Width 15.1 % (9.3-17.3); White Blood Count 6.2 T/CUMM (4-12)
[2017-11-17 06:51] LABS: Calcium 7.6 MG/DL (8.5-10.1); Magnesium 2.2 MG/DL (1.8-2.4); Osmolality,Calculated 266.4 MOS/KG (273-304); Potassium 3.4 MMOL/L (3.5-5.1)
[2017-11-17] MEDS: METOPROLOL SUCCINATE XL 25 MG TABLET PO SCH (11:22)
[2017-11-17] MEDS: ISOSORBIDE DINITRATE 20 MG TABLET PO SCH ×2 (11:22→21:16)
[2017-11-17] MEDS: ASPIRIN CHEW 81 MG TABLET PO SCH (11:22)
[2017-11-17] MEDS: MORPHINE ER 15 MG TABLET PO SCH ×2 (11:22→21:15)
[2017-11-17] MEDS: TOLVAPTAN 15 MG TABLET PO SCH (11:23)
[2017-11-17] MEDS: FUROSEMIDE 40 MG/4 ML VIAL IV SCH (11:31)
[2017-11-17] MEDS: hydrALAZINE 10 MG TABLET PO SCH ×2 (14:48→21:16)
[2017-11-17] MEDS: ONDANSETRON 4 MG/2 ML VIAL IV PRN ×2 (14:51→21:16)
[2017-11-17] MEDS: MORPHINE 2 MG/1 ML SYRINGE IV PRN (14:53)
[2017-11-17] MEDS: FUROSEMIDE 80 MG TABLET PO SCH (17:27)
[2017-11-17] MEDS: LEVOFLOXACIN INJ 500 MG in PREMIX 1 EACH IV SCH (17:30)
[2017-11-17] MEDS: ZALEPLON 5 MG CAPSULE PO SCH (21:15)
[2017-11-18] MEDS: METOCLOPRAMIDE 5 MG TABLET PO SCH ×4 (00:42→17:26)
[2017-11-18] MEDS: CLINDAMYCIN INJ 600 MG in PREMIX 1 EACH IV SCH ×3 (04:35→20:48)
[2017-11-18] MEDS: MORPHINE 2 MG/1 ML SYRINGE IV PRN ×2 (04:55→14:45)
[2017-11-18 05:49] LABS: INR 2.9
[2017-11-18] MEDS: FAMOTIDINE 20 MG/2 ML VIAL IV SCH ×2 (06:39→18:30)
[2017-11-18] MEDS: ISOSORBIDE DINITRATE 20 MG TABLET PO SCH ×2 (09:11→20:49)
[2017-11-18] MEDS: MORPHINE ER 15 MG TABLET PO SCH ×2 (09:11→20:49)
[2017-11-18] MEDS: METOPROLOL SUCCINATE XL 25 MG TABLET PO SCH (09:11)
[2017-11-18] MEDS: FUROSEMIDE 80 MG TABLET PO SCH ×2 (09:12→17:26)
[2017-11-18] MEDS: ASPIRIN CHEW 81 MG TABLET PO SCH (09:12)
[2017-11-18] MEDS: TOLVAPTAN 15 MG TABLET PO SCH (09:12)
[2017-11-18] MEDS: hydrALAZINE 10 MG TABLET PO SCH ×3 (09:12→20:49)
[2017-11-18] MEDS ORDERED: METOPROLOL SUCCINATE XL 25 MG TABLET PO ONE (10:57)
[2017-11-18] MEDS ORDERED: POTASSIUM CHLORIDE 20 MEQ/15 ML UDCUP PO ONE (11:57)
[2017-11-18 12:28] LABS: Calcium 8.2 MG/DL (8.5-10.1); Magnesium 1.8 MG/DL (1.8-2.4); Osmolality,Calculated 257.2 MOS/KG (273-304); Potassium 3.4 MMOL/L (3.5-5.1)
[2017-11-18] MEDS ORDERED: MAGNESIUM SULF RIDER 2 GM in PREMIX 1 EACH IV ONE (15:46)
[2017-11-18] MEDS: LEVOFLOXACIN INJ 500 MG in PREMIX 1 EACH IV SCH (17:21)
[2017-11-18] MEDS: ZALEPLON 5 MG CAPSULE PO SCH (20:49)
[2017-11-19] MEDS: METOCLOPRAMIDE 5 MG TABLET PO SCH ×5 (00:02→23:52)
[2017-11-19] MEDS: CLINDAMYCIN INJ 600 MG in PREMIX 1 EACH IV SCH ×3 (04:46→20:40)
[2017-11-19] MEDS: FAMOTIDINE 20 MG/2 ML VIAL IV SCH ×2 (06:01→18:07)
[2017-11-19 06:12] LABS: Basophils % 0.5 % (0.0-0.8); Eosinophils # 0.2 10*3/uL (0.0-0.87); Eosinophils % 2.8 % (0.00-10.9); Hematocrit 32.6 VOL% (35.7-47.0); Hemoglobin 10.7 GM/DL (12.0-16.0); Immature Granulocytes % 2.5 %; Lymphocytes % 12.7 % (21.3-54.2); Mean Corpuscular HGB Conc 32.8 GM/DL (32-36); Mean Corpuscular Hemoglobin 29 PG (27-34); Mean Corpuscular Volume 88.8 FL (87-102); Mean Platelet Volume 11.4 FL (9.6-12.0); Neutrophils # 5.4 10*3/uL (1.4-7.4); Neutrophils % 68.5 % (38.7-73.9); Platelet Count 260 T/CUMM (130-400); Red Blood Count 3.67 MC/CUMM (3.8-5.5); White Blood Count 7.9 T/CUMM (4-12)
[2017-11-19 06:20] LABS: INR 2.5
[2017-11-19 06:32] LABS: PT Patient Result 25.4 SECS
[2017-11-19 06:43] LABS: Calcium 8.4 MG/DL (8.5-10.1); Magnesium 2.5 MG/DL (1.8-2.4); Osmolality,Calculated 259.9 MOS/KG (273-304); Potassium 3.8 MMOL/L (3.5-5.1)
[2017-11-19] MEDS: ASPIRIN CHEW 81 MG TABLET PO SCH (08:54)
[2017-11-19] MEDS: FUROSEMIDE 80 MG TABLET PO SCH ×2 (08:54→17:34)
[2017-11-19] MEDS: hydrALAZINE 10 MG TABLET PO SCH ×3 (08:54→20:39)
[2017-11-19] MEDS: ISOSORBIDE DINITRATE 20 MG TABLET PO SCH ×2 (08:55→20:36)
[2017-11-19] MEDS: METOPROLOL SUCCINATE XL 25 MG TABLET PO SCH (08:55)
[2017-11-19] MEDS: MORPHINE ER 15 MG TABLET PO SCH ×2 (10:34→20:36)
[2017-11-19] MEDS: TOLVAPTAN 15 MG TABLET PO SCH (12:00)
[2017-11-19] MEDS ORDERED: ZINC OXIDE PASTE 113 GM TUBE TOP PRN (14:56)
[2017-11-19] MEDS: MORPHINE 2 MG/1 ML SYRINGE IV PRN (16:01)
[2017-11-19] MEDS: WARFARIN 1 MG TABLET PO SCH (17:32)
[2017-11-19] MEDS: LEVOFLOXACIN INJ 500 MG in PREMIX 1 EACH IV SCH (17:32)
[2017-11-19] MEDS: ZALEPLON 5 MG CAPSULE PO PRN (20:36)
[2017-11-20 04:44] LABS: Basophils % 0.2 % (0.0-0.8); Eosinophils # 0.2 10*3/uL (0.0-0.87); Eosinophils % 2.3 % (0.00-10.9); Hematocrit 32.3 VOL% (35.7-47.0); Immature Granulocytes % 1.8 %; Immature Granulocytes Absolute 0.16 #; Lymphocytes % 11.5 % (21.3-54.2); Mean Corpuscular HGB Conc 34.1 GM/DL (32-36); Mean Corpuscular Hemoglobin 29 PG (27-34); Mean Corpuscular Volume 85.9 FL (87-102); Mean Platelet Volume 11.2 FL (9.6-12.0); Monocytes # 1.4 10*3/uL (0.11-0.8); Monocytes % 15.6 % (1.7-12.7); Neutrophils # 6.1 10*3/uL (1.4-7.4); Neutrophils % 68.6 % (38.7-73.9); Platelet Count 294 T/CUMM (130-400); Red Blood Count 3.76 MC/CUMM (3.8-5.5); Red Cell Distribution Width 15.1 % (9.3-17.3)
[2017-11-20] MEDS: CLINDAMYCIN INJ 600 MG in PREMIX 1 EACH IV SCH ×3 (04:51→20:50)
[2017-11-20 04:56] LABS: INR 2.8
[2017-11-20 05:13] LABS: PT Patient Result 28.2 SECS
[2017-11-20 05:14] LABS: Calcium 8.5 MG/DL (8.5-10.1); Magnesium 2.1 MG/DL (1.8-2.4); Osmolality,Calculated 260.1 MOS/KG (273-304); Potassium 3.5 MMOL/L (3.5-5.1)
[2017-11-20 05:42] LABS: Eosinophils 2 % (0-10); Lymphocytes 9 % (20-55); Segmented Neutrophils 78 % (50-85); Total Cells Counted 100
[2017-11-20 05:43] LABS: Hypochromasia 1+; Microcytosis 1+; Ovalocytes Slight; Platelet Estimate Normal
[2017-11-20] MEDS: METOCLOPRAMIDE 5 MG TABLET PO SCH ×4 (06:01→23:47)
[2017-11-20] MEDS: FAMOTIDINE 20 MG/2 ML VIAL IV SCH ×2 (06:02→18:37)
[2017-11-20] MEDS: MORPHINE ER 15 MG TABLET PO SCH ×2 (08:52→20:50)
[2017-11-20] MEDS: ASPIRIN CHEW 81 MG TABLET PO SCH (08:52)
[2017-11-20] MEDS: ISOSORBIDE DINITRATE 20 MG TABLET PO SCH ×2 (08:52→20:50)
[2017-11-20] MEDS: FUROSEMIDE 80 MG TABLET PO SCH ×2 (08:52→16:37)
[2017-11-20] MEDS: hydrALAZINE 10 MG TABLET PO SCH ×3 (08:52→20:50)
[2017-11-20] MEDS: METOPROLOL SUCCINATE XL 25 MG TABLET PO SCH (08:52)
[2017-11-20] MEDS: TOLVAPTAN 15 MG TABLET PO SCH (08:56)
[2017-11-20] MEDS: MORPHINE 2 MG/1 ML SYRINGE IV PRN (16:37)
[2017-11-20] MEDS ORDERED: WARFARIN 2 MG TABLET PO SCH (18:00)
[2017-11-20] MEDS ORDERED: WARFARIN 5 MG TABLET PO SCH (18:00)
[2017-11-20] MEDS: WARFARIN 1 MG TABLET PO SCH (18:37)
[2017-11-20] MEDS: LEVOFLOXACIN INJ 500 MG in PREMIX 1 EACH IV SCH (18:44)
[2017-11-20] MEDS: ZALEPLON 5 MG CAPSULE PO PRN (21:23)
[2017-11-21] MEDS: CLINDAMYCIN INJ 600 MG in PREMIX 1 EACH IV SCH ×3 (03:50→20:56)
[2017-11-21 05:00] LABS: Basophils % 0.2 % (0.0-0.8); Eosinophils # 0.2 10*3/uL (0.0-0.87); Eosinophils % 1.9 % (0.00-10.9); Hematocrit 32.3 VOL% (35.7-47.0); Hemoglobin 10.6 GM/DL (12.0-16.0); Immature Granulocytes % 2.6 %; Immature Granulocytes Absolute 0.22 #; Lymphocytes % 12.2 % (21.3-54.2); Mean Corpuscular HGB Conc 32.8 GM/DL (32-36); Mean Corpuscular Hemoglobin 29 PG (27-34); Mean Corpuscular Volume 87.5 FL (87-102); Mean Platelet Volume 11.5 FL (9.6-12.0); Monocytes # 1.2 10*3/uL (0.11-0.8); Monocytes % 14.4 % (1.7-12.7); Neutrophils # 5.9 10*3/uL (1.4-7.4); Neutrophils % 68.7 % (38.7-73.9); Platelet Count 321 T/CUMM (130-400); Red Blood Count 3.69 MC/CUMM (3.8-5.5); Red Cell Distribution Width 15.3 % (9.3-17.3); White Blood Count 8.6 T/CUMM (4-12)
[2017-11-21 05:34] LABS: Calcium 8.4 MG/DL (8.5-10.1); Magnesium 2.2 MG/DL (1.8-2.4); Osmolality,Calculated 264.7 MOS/KG (273-304); Potassium 3.5 MMOL/L (3.5-5.1)
[2017-11-21 05:43] LABS: INR 3.3
[2017-11-21] MEDS: METOCLOPRAMIDE 5 MG TABLET PO SCH ×3 (05:55→18:33)
[2017-11-21] MEDS: FAMOTIDINE 20 MG/2 ML VIAL IV SCH ×2 (06:00→18:35)
[2017-11-21 06:07] LABS: PT Patient Result 33.2 SECS
[2017-11-21] MEDS: MORPHINE ER 15 MG TABLET PO SCH ×2 (10:34→20:56)
[2017-11-21] MEDS: METOPROLOL SUCCINATE XL 25 MG TABLET PO SCH (10:35)
[2017-11-21] MEDS: ASPIRIN CHEW 81 MG TABLET PO SCH (10:35)
[2017-11-21] MEDS: TOLVAPTAN 15 MG TABLET PO SCH (10:35)
[2017-11-21] MEDS: hydrALAZINE 10 MG TABLET PO SCH ×3 (10:35→20:56)
[2017-11-21] MEDS: ISOSORBIDE DINITRATE 20 MG TABLET PO SCH ×2 (10:35→20:56)
[2017-11-21] MEDS: FUROSEMIDE 80 MG TABLET PO SCH ×2 (10:35→16:48)
[2017-11-21] MEDS: ONDANSETRON 4 MG/2 ML VIAL IV PRN (16:47)
[2017-11-21] MEDS: LEVOFLOXACIN INJ 500 MG in PREMIX 1 EACH IV SCH (18:31)
[2017-11-22] MEDS: METOCLOPRAMIDE 5 MG TABLET PO SCH ×5 (00:39→23:08)
[2017-11-22] MEDS: ZALEPLON 5 MG CAPSULE PO PRN ×2 (00:41→21:04)
[2017-11-22] MEDS: CLINDAMYCIN INJ 600 MG in PREMIX 1 EACH IV SCH ×3 (05:00→21:04)
[2017-11-22 06:14] LABS: Basophils % 0.4 % (0.0-0.8); Eosinophils # 0.2 10*3/uL (0.0-0.87); Eosinophils % 2.3 % (0.00-10.9); Hematocrit 31.4 VOL% (35.7-47.0); Hemoglobin 10.4 GM/DL (12.0-16.0); Immature Granulocytes % 3.8 %; Immature Granulocytes Absolute 0.29 #; Lymphocytes # 1.1 10*3/uL (1.4-4.0); Mean Corpuscular HGB Conc 33.1 GM/DL (32-36); Mean Corpuscular Hemoglobin 29 PG (27-34); Mean Platelet Volume 11.4 FL (9.6-12.0); Monocytes # 1.1 10*3/uL (0.11-0.8); Monocytes % 15.1 % (1.7-12.7); Neutrophils # 4.9 10*3/uL (1.4-7.4); Neutrophils % 64.4 % (38.7-73.9); Platelet Count 343 T/CUMM (130-400); Red Blood Count 3.61 MC/CUMM (3.8-5.5); Red Cell Distribution Width 15.3 % (9.3-17.3); White Blood Count 7.6 T/CUMM (4-12)
[2017-11-22] MEDS: FAMOTIDINE 20 MG/2 ML VIAL IV SCH ×2 (06:30→18:30)
[2017-11-22 06:44] LABS: Calcium 8.1 MG/DL (8.5-10.1); Magnesium 1.9 MG/DL (1.8-2.4); Osmolality,Calculated 260.9 MOS/KG (273-304); Potassium 3.5 MMOL/L (3.5-5.1)
[2017-11-22 07:23] LABS: PT Patient Result 58.7 SECS
[2017-11-22 07:25] LABS: INR 5.9
[2017-11-22] MEDS ORDERED: PHYTONADIONE 10 MG/1 ML AMP IV ONE (07:57)
[2017-11-22] MEDS: MORPHINE ER 15 MG TABLET PO SCH ×2 (09:27→21:04)
[2017-11-22] MEDS: ASPIRIN CHEW 81 MG TABLET PO SCH (09:28)
[2017-11-22] MEDS: hydrALAZINE 10 MG TABLET PO SCH ×3 (09:28→21:04)
[2017-11-22] MEDS: METOPROLOL SUCCINATE XL 25 MG TABLET PO SCH (09:28)
[2017-11-22] MEDS: TOLVAPTAN 15 MG TABLET PO SCH (09:28)
[2017-11-22] MEDS: FUROSEMIDE 80 MG TABLET PO SCH ×2 (09:29→15:28)
[2017-11-22] MEDS: ISOSORBIDE DINITRATE 20 MG TABLET PO SCH ×2 (09:29→21:04)
[2017-11-22] MEDS: ONDANSETRON 4 MG/2 ML VIAL IV PRN (13:51)
[2017-11-22] MEDS: LEVOFLOXACIN INJ 500 MG in PREMIX 1 EACH IV SCH (18:30)
[2017-11-23] MEDS: CLINDAMYCIN INJ 600 MG in PREMIX 1 EACH IV SCH ×3 (03:35→20:15)
[2017-11-23 04:21] LABS: Basophils % 0.4 % (0.0-0.8); Eosinophils # 0.1 10*3/uL (0.0-0.87); Eosinophils % 1.7 % (0.00-10.9); Hematocrit 30.6 VOL% (35.7-47.0); Hemoglobin 10.5 GM/DL (12.0-16.0); Immature Granulocytes % 2.3 %; Immature Granulocytes Absolute 0.19 #; Lymphocytes # 1.1 10*3/uL (1.4-4.0); Lymphocytes % 13.1 % (21.3-54.2); Mean Corpuscular HGB Conc 34.3 GM/DL (32-36); Mean Corpuscular Hemoglobin 29 PG (27-34); Mean Corpuscular Volume 85.5 FL (87-102); Mean Platelet Volume 11.4 FL (9.6-12.0); Monocytes # 1.2 10*3/uL (0.11-0.8); Monocytes % 13.7 % (1.7-12.7); Neutrophils # 5.8 10*3/uL (1.4-7.4); Neutrophils % 68.8 % (38.7-73.9); Platelet Count 318 T/CUMM (130-400); Red Blood Count 3.58 MC/CUMM (3.8-5.5); Red Cell Distribution Width 15.4 % (9.3-17.3); White Blood Count 8.4 T/CUMM (4-12)
[2017-11-23] MEDS: MORPHINE 2 MG/1 ML SYRINGE IV PRN (04:25)
[2017-11-23 04:40] LABS: INR 1.4; PT Patient Result 14.1 SECS
[2017-11-23 04:53] LABS: Calcium 9.1 MG/DL (8.5-10.1); Osmolality,Calculated 259.9 MOS/KG (273-304); Potassium 3.3 MMOL/L (3.5-5.1)
[2017-11-23] MEDS: METOCLOPRAMIDE 5 MG TABLET PO SCH ×3 (05:31→18:08)
[2017-11-23] MEDS: FAMOTIDINE 20 MG/2 ML VIAL IV SCH ×2 (06:07→18:08)
[2017-11-23] MEDS: hydrALAZINE 10 MG TABLET PO SCH ×3 (09:14→20:15)
[2017-11-23] MEDS: METOPROLOL SUCCINATE XL 25 MG TABLET PO SCH (09:14)
[2017-11-23] MEDS: MORPHINE ER 15 MG TABLET PO SCH ×2 (09:15→20:20)
[2017-11-23] MEDS: FUROSEMIDE 80 MG TABLET PO SCH ×2 (09:15→15:10)
[2017-11-23] MEDS: ASPIRIN CHEW 81 MG TABLET PO SCH (09:15)
[2017-11-23] MEDS: ISOSORBIDE DINITRATE 20 MG TABLET PO SCH ×2 (09:15→20:15)
[2017-11-23] MEDS: TOLVAPTAN 15 MG TABLET PO SCH (09:15)
[2017-11-23] MEDS: SPIRONOLACTONE 25 MG TABLET PO SCH (10:38)
[2017-11-23] MEDS: POTASSIUM CHLORIDE 20 MEQ TABLET PO PRN ×3 (10:43→15:11)
[2017-11-23] MEDS: ONDANSETRON 4 MG/2 ML VIAL IV PRN (12:44)
[2017-11-23] MEDS: LEVOFLOXACIN INJ 500 MG in PREMIX 1 EACH IV SCH (18:08)
[2017-11-23] MEDS: WARFARIN 5 MG TABLET PO SCH (18:08)
[2017-11-23] MEDS: ZALEPLON 5 MG CAPSULE PO PRN (20:15)
[2017-11-24] MEDS: METOCLOPRAMIDE 5 MG TABLET PO SCH ×4 (00:07→18:18)
[2017-11-24] MEDS: CLINDAMYCIN INJ 600 MG in PREMIX 1 EACH IV SCH ×3 (05:43→20:55)
[2017-11-24] MEDS: FAMOTIDINE 20 MG/2 ML VIAL IV SCH ×2 (06:14→18:15)
[2017-11-24 06:24] LABS: Basophils % 0.3 % (0.0-0.8); Eosinophils # 0.1 10*3/uL (0.0-0.87); Eosinophils % 1.6 % (0.00-10.9); Hematocrit 29.9 VOL% (35.7-47.0); Hemoglobin 9.9 GM/DL (12.0-16.0); Immature Granulocytes % 1.7 %; Immature Granulocytes Absolute 0.15 #; Lymphocytes # 1.1 10*3/uL (1.4-4.0); Lymphocytes % 12.7 % (21.3-54.2); Mean Corpuscular HGB Conc 33.1 GM/DL (32-36); Mean Corpuscular Hemoglobin 29 PG (27-34); Mean Corpuscular Volume 86.9 FL (87-102); Mean Platelet Volume 11.7 FL (9.6-12.0); Monocytes % 11.3 % (1.7-12.7); Neutrophils # 6.3 10*3/uL (1.4-7.4); Neutrophils % 72.4 % (38.7-73.9); Platelet Count 190 T/CUMM (130-400); Red Blood Count 3.44 MC/CUMM (3.8-5.5); Red Cell Distribution Width 15.5 % (9.3-17.3); White Blood Count 8.7 T/CUMM (4-12)
[2017-11-24 06:32] LABS: INR 1.3
[2017-11-24 07:00] LABS: Calcium 8.5 MG/DL (8.5-10.1); Osmolality,Calculated 262.8 MOS/KG (273-304); Potassium 3.9 MMOL/L (3.5-5.1)
[2017-11-24] MEDS: METOPROLOL SUCCINATE XL 25 MG TABLET PO SCH (09:53)
[2017-11-24] MEDS: TOLVAPTAN 15 MG TABLET PO SCH (09:54)
[2017-11-24] MEDS: MORPHINE ER 15 MG TABLET PO SCH ×2 (09:54→20:55)
[2017-11-24] MEDS: hydrALAZINE 10 MG TABLET PO SCH ×3 (09:54→20:55)
[2017-11-24] MEDS: FUROSEMIDE 80 MG TABLET PO SCH ×2 (09:54→16:00)
[2017-11-24] MEDS: SPIRONOLACTONE 25 MG TABLET PO SCH (09:55)
[2017-11-24] MEDS: ISOSORBIDE DINITRATE 20 MG TABLET PO SCH ×2 (09:55→20:55)
[2017-11-24] MEDS: ASPIRIN CHEW 81 MG TABLET PO SCH (09:55)
[2017-11-24] MEDS: LEVOFLOXACIN INJ 500 MG in PREMIX 1 EACH IV SCH (18:17)
[2017-11-24] MEDS: WARFARIN 5 MG TABLET PO SCH (18:17)
[2017-11-24] MEDS: ZALEPLON 5 MG CAPSULE PO PRN (20:55)
[2017-11-24] MEDS: ONDANSETRON 4 MG/2 ML VIAL IV PRN (21:05)
[2017-11-25] MEDS: METOCLOPRAMIDE 5 MG TABLET PO SCH ×4 (00:10→18:25)
[2017-11-25] MEDS: CLINDAMYCIN INJ 600 MG in PREMIX 1 EACH IV SCH ×3 (05:21→21:37)
[2017-11-25 05:45] LABS: Basophils % 0.2 % (0.0-0.8); Eosinophils # 0.2 10*3/uL (0.0-0.87); Eosinophils % 1.6 % (0.00-10.9); Hematocrit 28.9 VOL% (35.7-47.0); Hemoglobin 9.8 GM/DL (12.0-16.0); Immature Granulocytes % 1.3 %; Immature Granulocytes Absolute 0.14 #; Lymphocytes # 1.2 10*3/uL (1.4-4.0); Lymphocytes % 11.1 % (21.3-54.2); Mean Corpuscular HGB Conc 33.9 GM/DL (32-36); Mean Corpuscular Hemoglobin 29 PG (27-34); Mean Corpuscular Volume 85.3 FL (87-102); Mean Platelet Volume 10.5 FL (9.6-12.0); Monocytes % 9.5 % (1.7-12.7); Neutrophils % 76.3 % (38.7-73.9); Platelet Count 331 T/CUMM (130-400); Red Blood Count 3.39 MC/CUMM (3.8-5.5); Red Cell Distribution Width 15.6 % (9.3-17.3); White Blood Count 10.5 T/CUMM (4-12)
[2017-11-25 05:56] LABS: INR 2.5
[2017-11-25] MEDS: FAMOTIDINE 20 MG/2 ML VIAL IV SCH ×2 (06:03→18:24)
[2017-11-25 06:20] LABS: Calcium 8.5 MG/DL (8.5-10.1); Osmolality,Calculated 263.7 MOS/KG (273-304); Potassium 3.5 MMOL/L (3.5-5.1)
[2017-11-25 07:00] LABS: PT Patient Result 25.4 SECS
[2017-11-25] MEDS: FUROSEMIDE 80 MG TABLET PO SCH ×2 (09:31→17:43)
[2017-11-25] MEDS: ISOSORBIDE DINITRATE 20 MG TABLET PO SCH ×2 (09:31→21:34)
[2017-11-25] MEDS: ASPIRIN CHEW 81 MG TABLET PO SCH (09:31)
[2017-11-25] MEDS: METOPROLOL SUCCINATE XL 25 MG TABLET PO SCH (09:31)
[2017-11-25] MEDS: SPIRONOLACTONE 25 MG TABLET PO SCH (09:32)
[2017-11-25] MEDS: hydrALAZINE 10 MG TABLET PO SCH ×3 (09:32→21:35)
[2017-11-25] MEDS: TOLVAPTAN 15 MG TABLET PO SCH (09:32)
[2017-11-25] MEDS: MORPHINE ER 15 MG TABLET PO SCH ×2 (09:32→21:33)
[2017-11-25] MEDS: MORPHINE 2 MG/1 ML SYRINGE IV PRN ×2 (13:19→17:43)
[2017-11-25] MEDS ORDERED: WARFARIN 4 MG TABLET PO SCH (18:00)
[2017-11-25] MEDS: LEVOFLOXACIN INJ 500 MG in PREMIX 1 EACH IV SCH (18:25)
[2017-11-25] MEDS: ZALEPLON 5 MG CAPSULE PO PRN (22:10)
[2017-11-26] MEDS: METOCLOPRAMIDE 5 MG TABLET PO SCH ×4 (00:53→17:46)
[2017-11-26] MEDS: CLINDAMYCIN INJ 600 MG in PREMIX 1 EACH IV SCH ×3 (05:50→21:37)
[2017-11-26 06:32] LABS: Basophils % 0.4 % (0.0-0.8); Eosinophils # 0.1 10*3/uL (0.0-0.87); Eosinophils % 0.5 % (0.00-10.9); Hematocrit 30.3 VOL% (35.7-47.0); Hemoglobin 10.2 GM/DL (12.0-16.0); Immature Granulocytes % 1.6 %; Immature Granulocytes Absolute 0.17 #; Lymphocytes # 1.3 10*3/uL (1.4-4.0); Lymphocytes % 12.2 % (21.3-54.2); Mean Corpuscular HGB Conc 33.7 GM/DL (32-36); Mean Corpuscular Hemoglobin 29 PG (27-34); Mean Corpuscular Volume 87.3 FL (87-102); Monocytes # 1.1 10*3/uL (0.11-0.8); Monocytes % 10.1 % (1.7-12.7); Neutrophils # 8.2 10*3/uL (1.4-7.4); Neutrophils % 75.2 % (38.7-73.9); Platelet Count 318 T/CUMM (130-400); Red Blood Count 3.47 MC/CUMM (3.8-5.5); Red Cell Distribution Width 15.9 % (9.3-17.3); White Blood Count 10.9 T/CUMM (4-12)
[2017-11-26 06:42] LABS: INR 3.5
[2017-11-26 06:43] LABS: PT Patient Result 35.5 SECS
[2017-11-26] MEDS: FAMOTIDINE 20 MG/2 ML VIAL IV SCH ×2 (06:45→18:57)
[2017-11-26 07:01] LABS: Calcium 8.2 MG/DL (8.5-10.1); Osmolality,Calculated 260.8 MOS/KG (273-304); Potassium 3.5 MMOL/L (3.5-5.1)
[2017-11-26] MEDS: FUROSEMIDE 80 MG TABLET PO SCH ×2 (09:46→15:10)
[2017-11-26] MEDS: ISOSORBIDE DINITRATE 20 MG TABLET PO SCH ×2 (09:47→21:32)
[2017-11-26] MEDS: METOPROLOL SUCCINATE XL 25 MG TABLET PO SCH (09:47)
[2017-11-26] MEDS: SPIRONOLACTONE 25 MG TABLET PO SCH (09:47)
[2017-11-26] MEDS: hydrALAZINE 10 MG TABLET PO SCH ×3 (09:47→21:32)
[2017-11-26] MEDS: TOLVAPTAN 15 MG TABLET PO SCH (09:47)
[2017-11-26] MEDS: MORPHINE ER 15 MG TABLET PO SCH ×2 (09:47→21:31)
[2017-11-26] MEDS: ASPIRIN CHEW 81 MG TABLET PO SCH (09:47)
[2017-11-26] MEDS: WARFARIN 3 MG TABLET PO SCH (17:46)
[2017-11-26] MEDS: LEVOFLOXACIN INJ 500 MG in PREMIX 1 EACH IV SCH (17:46)
[2017-11-26] MEDS: ONDANSETRON 4 MG/2 ML VIAL IV PRN (21:34)
[2017-11-27] MEDS: METOCLOPRAMIDE 5 MG TABLET PO SCH ×5 (00:43→23:46)
[2017-11-27] MEDS: CLINDAMYCIN INJ 600 MG in PREMIX 1 EACH IV SCH (04:17)
[2017-11-27 05:20] LABS: Basophils % 0.1 % (0.0-0.8); Eosinophils # 0.1 10*3/uL (0.0-0.87); Eosinophils % 1.4 % (0.00-10.9); Hematocrit 28.2 VOL% (35.7-47.0); Hemoglobin 9.9 GM/DL (12.0-16.0); Immature Granulocytes % 1.3 %; Immature Granulocytes Absolute 0.12 #; Lymphocytes # 1.3 10*3/uL (1.4-4.0); Lymphocytes % 14.6 % (21.3-54.2); Mean Corpuscular HGB Conc 35.1 GM/DL (32-36); Mean Corpuscular Hemoglobin 30 PG (27-34); Mean Corpuscular Volume 85.2 FL (87-102); Mean Platelet Volume 11.4 FL (9.6-12.0); Monocytes % 10.6 % (1.7-12.7); Neutrophils # 6.6 10*3/uL (1.4-7.4); Platelet Count 266 T/CUMM (130-400); Red Blood Count 3.31 MC/CUMM (3.8-5.5); Red Cell Distribution Width 15.9 % (9.3-17.3); White Blood Count 9.2 T/CUMM (4-12)
[2017-11-27 06:09] LABS: Calcium 7.9 MG/DL (8.5-10.1); Magnesium 1.9 MG/DL (1.8-2.4); Osmolality,Calculated 263.5 MOS/KG (273-304); Potassium 3.1 MMOL/L (3.5-5.1)
[2017-11-27] MEDS: FAMOTIDINE 20 MG/2 ML VIAL IV SCH ×2 (06:37→18:15)
[2017-11-27 06:43] LABS: PT Patient Result 51.5 SECS
[2017-11-27 06:44] LABS: INR 5.2
[2017-11-27] MEDS: POTASSIUM CHLORIDE 20 MEQ TABLET PO PRN (08:56)
[2017-11-27] MEDS: hydrALAZINE 10 MG TABLET PO SCH ×3 (08:56→22:22)
[2017-11-27] MEDS: FUROSEMIDE 80 MG TABLET PO SCH ×2 (08:56→18:15)
[2017-11-27] MEDS: SPIRONOLACTONE 25 MG TABLET PO SCH (08:56)
[2017-11-27] MEDS: ISOSORBIDE DINITRATE 20 MG TABLET PO SCH ×2 (08:56→22:21)
[2017-11-27] MEDS: ASPIRIN CHEW 81 MG TABLET PO SCH (08:56)
[2017-11-27] MEDS: METOPROLOL SUCCINATE XL 25 MG TABLET PO SCH (08:57)
[2017-11-27] MEDS: TOLVAPTAN 15 MG TABLET PO SCH (08:57)
[2017-11-27] MEDS ORDERED: PHYTONADIONE 5 MG/5 ML ORAL.SYR PO ONE (10:00)
[2017-11-27] MEDS: MORPHINE 2 MG/1 ML SYRINGE IV PRN ×4 (11:07→22:22)
[2017-11-27] MEDS: CLORAZEPATE 3.75 MG TABLET PO PRN (14:20)
[2017-11-27] MEDS: POTASSIUM CHLORIDE 20 MEQ TABLET PO SCH (22:23)
[2017-11-28 04:48] LABS: INR 1.8
[2017-11-28 05:06] LABS: Calcium 8.2 MG/DL (8.5-10.1); Osmolality,Calculated 263.5 MOS/KG (273-304); Potassium 3.1 MMOL/L (3.5-5.1)
[2017-11-28] MEDS: METOCLOPRAMIDE 5 MG TABLET PO SCH ×3 (06:10→17:16)
[2017-11-28] MEDS: FAMOTIDINE 20 MG/2 ML VIAL IV SCH ×2 (06:11→19:22)
[2017-11-28] MEDS ORDERED: MAGNESIUM SULF RIDER 2 GM in PREMIX 1 EACH IV ONE (07:38)
[2017-11-28] MEDS: ONDANSETRON 4 MG/2 ML VIAL IV PRN ×2 (08:15→14:20)
[2017-11-28] MEDS: MORPHINE 2 MG/1 ML SYRINGE IV PRN ×2 (08:15→14:05)
[2017-11-28] MEDS ORDERED: POTASSIUM CHLORIDE INJ 20 MEQ in SODIUM CHLORIDE 0.9% 250 ML IV ONE (08:30)
[2017-11-28] MEDS: ASPIRIN CHEW 81 MG TABLET PO SCH (09:11)
[2017-11-28] MEDS: SPIRONOLACTONE 25 MG TABLET PO SCH (09:11)
[2017-11-28] MEDS: hydrALAZINE 10 MG TABLET PO SCH ×3 (09:11→21:55)
[2017-11-28] MEDS: FUROSEMIDE 80 MG TABLET PO SCH ×2 (09:11→17:16)
[2017-11-28] MEDS: ISOSORBIDE DINITRATE 20 MG TABLET PO SCH ×2 (09:11→21:55)
[2017-11-28] MEDS: TOLVAPTAN 15 MG TABLET PO SCH (09:12)
[2017-11-28] MEDS: POTASSIUM CHLORIDE 20 MEQ TABLET PO SCH (09:12)
[2017-11-28] MEDS: CLORAZEPATE 3.75 MG TABLET PO PRN ×2 (09:12→21:55)
[2017-11-28] MEDS: METOPROLOL SUCCINATE XL 25 MG TABLET PO SCH (09:12)
[2017-11-28 16:22] LABS: Calcium 8.6 MG/DL (8.5-10.1); Magnesium 2.5 MG/DL (1.8-2.4); Osmolality,Calculated 262.8 MOS/KG (273-304); Potassium 3.1 MMOL/L (3.5-5.1)
[2017-11-28] MEDS: WARFARIN 3 MG TABLET PO SCH (17:16)
[2017-11-28] MEDS: POTASSIUM CHLORIDE 20 MEQ/15 ML UDCUP PO SCH (22:06)
[2017-11-29] MEDS: METOCLOPRAMIDE 5 MG TABLET PO SCH ×3 (00:16→12:20)
[2017-11-29 05:54] LABS: Hematocrit 30.5 VOL% (35.7-47.0); Hemoglobin 10.1 GM/DL (12.0-16.0); Red Blood Count 3.47 MC/CUMM (3.8-5.5); White Blood Count 9.5 T/CUMM (4-12)
[2017-11-29 05:55] LABS: Basophils # 0.1 10*3/uL (0.0-0.2); Basophils % 0.5 % (0.0-0.8); Eosinophils % 0.1 % (0.00-10.9); Immature Granulocytes % 1.1 %; Lymphocytes # 1.6 10*3/uL (1.4-4.0); Lymphocytes % 16.6 % (21.3-54.2); Mean Corpuscular HGB Conc 33.1 GM/DL (32-36); Mean Corpuscular Hemoglobin 29 PG (27-34); Mean Corpuscular Volume 87.9 FL (87-102); Mean Platelet Volume 11.3 FL (9.6-12.0); Monocytes # 1.2 10*3/uL (0.11-0.8); Monocytes % 12.6 % (1.7-12.7); Neutrophils # 6.6 10*3/uL (1.4-7.4); Neutrophils % 69.1 % (38.7-73.9); Platelet Count 256 T/CUMM (130-400); Red Cell Distribution Width 16.5 % (9.3-17.3)
[2017-11-29 06:02] LABS: INR 1.5
[2017-11-29] MEDS: FAMOTIDINE 20 MG/2 ML VIAL IV SCH (06:06)
[2017-11-29 06:21] LABS: Calcium 8.1 MG/DL (8.5-10.1); Osmolality,Calculated 266.2 MOS/KG (273-304); Potassium 3.2 MMOL/L (3.5-5.1)
[2017-11-29] MEDS: METOPROLOL SUCCINATE XL 25 MG TABLET PO SCH (09:21)
[2017-11-29] MEDS: TOLVAPTAN 15 MG TABLET PO SCH (09:21)
[2017-11-29] MEDS: ISOSORBIDE DINITRATE 20 MG TABLET PO SCH (09:21)
[2017-11-29] MEDS: FUROSEMIDE 80 MG TABLET PO SCH (09:21)
[2017-11-29] MEDS: ASPIRIN CHEW 81 MG TABLET PO SCH (09:21)
[2017-11-29] MEDS: SPIRONOLACTONE 25 MG TABLET PO SCH (09:22)
[2017-11-29] MEDS: hydrALAZINE 10 MG TABLET PO SCH (09:22)
[2017-11-29] MEDS: POTASSIUM CHLORIDE 20 MEQ/15 ML UDCUP PO SCH (09:22)
[2017-11-29 11:32] VITALS: BP 108/66
== END 2017-11-29 16:23 | disposition home health service (06) | DRG 388 ==
LOC: N.ICU 18:30 → SUATTDRO 18:30 → N.3E 21:18
PROVIDERS: ADMIT Internal Medicine; ATTEND Internal Medicine